=== PATIENT | female | born 1960 | race Two or more races ===

== ENCOUNTER 2019-07-15 19:46 | Emergency (ER) | payer OTHER ==
[~2019-07-15] VITALS: Ht 167.6 cm; Wt 78.9 kg
[2019-07-15] MEDS ORDERED: ACETAMINOPHEN 325 MG TAB PO ONE (20:30)
[2019-07-15 20:35] VITALS: BP 157/84
== END 2019-07-15 22:30 | disposition home or self-care (01) ==
LOC: ER 19:49
DX: J06.9 Acute upper respiratory infection, unspecified (principal); R50.9 Fever, unspecified
CPT/HCPCS: 82962